=== PATIENT | male | born 1960 | race Caucasian/White ===

== ENCOUNTER 2024-10-11 17:15 | Emergency (ER) | payer OTHER ==
[~2024-10-11] VITALS: Ht 170.2 cm; Wt 78.9 kg
[2024-10-11 17:21] VITALS: O2SAT 99
[2024-10-11 18:53] LABS: EOSINOPHILS % 7.6 % (0.0-5.0); HEMATOCRIT. 28.7 % (42.0-52.0); HEMOGLOBIN. 9.7 g/dL (14.0-18.0); LYMPHOCYTES % 18.4 % (20.0-50.0); MEAN CORPUSCULAR HEMOGLOBIN 30.8 pg (28.0-32.0); MEAN CORPUSCULAR HGB CONC 33.7 g/dL (31.0-37.0); MEAN CORPUSCULAR VOLUME 91.2 fL (80.0-94.0); MEAN PLATELET VOLUME 8.4 fl (7.4-10.4); MONOCYTES % 8.6 % (2.0-8.0); NEUTROPHILS % 64.4 % (40.0-76.0); PLATELET 218 x1000/uL (130-400); RED BLOOD CELL COUNT 3.15 mill/uL (4.7-6.1); RED CELL DISTRIBUTION WIDTH 13.9 % (11.6-14.6); WHITE BLOOD COUNT 6.1 x1000/uL (4.5-11.0)
[2024-10-11 18:59] LABS: POTASSIUM 5.1 mEq/L (3.5-5.1)
[2024-10-11 19:01] LABS: CALCIUM 9.2 mg/dL (8.7-10.4)
[2024-10-11 19:05] LABS: CREATININE 1.7 mg/dL (0.6-1.3)
[2024-10-11 23:13] LABS: EOSINOPHILS % 7.6 % (0.0-5.0); HEMATOCRIT. 31.2 % (42.0-52.0); HEMOGLOBIN. 10.4 g/dL (14.0-18.0); LYMPHOCYTES % 20.2 % (20.0-50.0); MEAN CORPUSCULAR HEMOGLOBIN 29.7 pg (28.0-32.0); MEAN CORPUSCULAR HGB CONC 33.3 g/dL (31.0-37.0); MEAN CORPUSCULAR VOLUME 89.3 fL (80.0-94.0); MONOCYTES % 8.8 % (2.0-8.0); NEUTROPHILS % 62.4 % (40.0-76.0); PLATELET 217 x1000/uL (130-400); RED BLOOD CELL COUNT 3.49 mill/uL (4.7-6.1); RED CELL DISTRIBUTION WIDTH 13.8 % (11.6-14.6); WHITE BLOOD COUNT 5.3 x1000/uL (4.5-11.0)
[2024-10-11 23:17] LABS: POTASSIUM 4.3 mEq/L (3.5-5.1)
[2024-10-11 23:18] LABS: CALCIUM 9.6 mg/dL (8.7-10.4)
[2024-10-11 23:20] LABS: PROTHROMBIN TIME 11.1 sec (9.6-11.0)
[2024-10-11 23:23] LABS: CREATININE 1.6 mg/dL (0.6-1.3)
[2024-10-12] MEDS: PIPERACILLIN/TAZO 3.375G/50ML 50 ML IV SCH (00:07)
[2024-10-12] MEDS: PIPERACILLIN/TAZO 3.375G/50ML 50 ML IV ONE (00:07)
[2024-10-12] MEDS: SODIUM CHLORIDE 0.9% 1,000 ML IV ONE (00:07)
[2024-10-12] MEDS: VANCOMYCIN 1.5GM/250ML 250 ML IV SCH (00:53)
[2024-10-12] MEDS ORDERED: MAGNESIUM HYDROXIDE 400MG/5ML 30ML UDC PO PRN (01:45)
[2024-10-12] MEDS ORDERED: ACETAMINOPHEN 325MG TABLET PO PRN ×2 (01:45)
[2024-10-12] MEDS ORDERED: GUAIFENESIN 200MG/10ML SUGAR FREE UDC PO PRN (01:45)
[2024-10-12] MEDS ORDERED: HYDROCODONE/ACETAMINOPHEN 5/325MG TABLET PO PRN (01:45)
[2024-10-12] MEDS ORDERED: SODIUM CHLORIDE 0.9% 1,000 ML IV SCH (01:45)
[2024-10-12] MEDS ORDERED: BISACODYL 10MG SUPP PR PRN (01:45)
[2024-10-12] MEDS ORDERED: HYDRALAZINE HCL 25MG TABLET PO PRN (01:45)
[2024-10-12] MEDS ORDERED: MORPHINE SULFATE 2 MG/ML INJ (NOT FOR IM USE) IV PRN (01:45)
[2024-10-12 03:50] VITALS: BP 153/68; PULSE 67; RESP 12; TEMP 36.8; O2SAT 100
[2024-10-12] MEDS ORDERED: HEPARIN 5000 UNITS/ML VIAL SUBCUT SCH (09:00)
[2024-10-13] MEDS ORDERED: VANCOMYCIN 1GM/200ML PMX (BAXTER) IV SCH (01:00)
== END 2024-10-12 03:58 | disposition short-term general hospital (02) ==
LOC: ER 17:15
DX: M86.9 Osteomyelitis, unspecified (principal); E11.9 Type 2 diabetes mellitus without complications; E78.00 Pure hypercholesterolemia, unspecified; G40.909 Epilepsy, unspecified, not intractable, without status epilepticus; I10 Essential (primary) hypertension; Z86.73 Personal history of transient ischemic attack (TIA), and cerebral infarction without residual deficits; Z79.899 Other long term (current) drug therapy
CPT/HCPCS: 80048; 85025; 85610; 87040; 36415; 84145; 73630; 93005; 99285; 96367; 96365; 96366; J3370; J2543; J7030; Z7610 ×2